=== PATIENT | female | born 1955 | race Caucasian/White ===

== ENCOUNTER 2017-02-07 07:45 | Observation (INO) | payer BC ==
[~2017-02-07 07:45] MED LIST: LIDOCAINE MPF 2% - 5 ML (20 MG/1 ML) ONE; LIDOCAINE W/ SODIUM BICARB 0.5 ML SYR ONE; Lactated Ringers 2,000 ML PRIMARY IV ONE; MIDAZOLAM 5 MG/1 ML ONE; ROCURONIUM 10 MG/1 ML - 5 ML VIAL IVP ONE; Sodium Chloride 0.9% 100 ML IV ONE; fentaNYL Inj 250 MCG/5 ML VIAL ONE
[2017-02-07 08:01] LABS: BILIRUBIN,URINE NEGATIVE (NEG); CLARITY,URINE CLEAR (CLEAR); COLOR,URINE YELLOW; GLUCOSE, URINE (UA) NEGATIVE (NEG); NITRATE,URINE NEGATIVE (NEG); OCCULT BLOOD,URINE NEGATIVE (NEG); PH,URINE >=9.0 (5.0-8.5); PROTEIN,URINE 30 mg/dl (NEG); UROBILINOGEN,URINE 0.2 EU/dL (0.2)
[2017-02-07 08:02] LABS: URINE SAMPLE TYPE VOIDED SPECIMEN
[2017-02-07 08:10] LABS: SQUAMOUS EPITHELIAL CELL,UR MODERATE; URINE CRYSTALS MANY
[2017-02-07] MEDS ORDERED: BUPIVACAINE 0.25% W/ EPI - 10 ML VIAL ONE (09:18)
[2017-02-07] MEDS ORDERED: ONDANSETRON 4 MG/2 ML VIAL ONE (09:20)
[2017-02-07] MEDS ORDERED: DEXAMETHASONE SOD PHOSPHATE 4 MG/1 ML VIAL ONE (09:20)
[2017-02-07] MEDS ORDERED: FAMOTIDINE 20 MG/2 ML VIAL IVP ONE (09:20)
[2017-02-07] MEDS ORDERED: SCOPOLAMINE HYDROBROMIDE 1.5 MG - 1 EACH PATCH TRANSDERM ONE (09:33)
[2017-02-07] MEDS ORDERED: SUFENTANIL 50 MCG/1 ML ONE (10:13)
[2017-02-07] MEDS ORDERED: KETAMINE 100 MG/1 ML - 5 ML ONE (10:13)
[2017-02-07] MEDS ORDERED: HYDRALAZINE 20 MG/1 ML ONE (10:18)
[2017-02-07] MEDS ORDERED: Lactated Ringers 1,000 ML PRIMARY IV ONE (11:00)
[2017-02-07] MEDS ORDERED: METHYLENE BLUE 10 MG/1 ML - 10 ML IM ONE (12:04)
[2017-02-07] MEDS ORDERED: HYDROmorphone 2 MG/1 ML ONE (12:12)
[2017-02-07] MEDS ORDERED: KETOROLAC 30 MG/1 ML VIAL ONE (12:33)
[2017-02-07] MEDS ORDERED: Ondansetron ODT Tab 8 MG TAB PO PRN (12:46)
[2017-02-07] MEDS ORDERED: IBUPROFEN 800 MG TABLET PO PRN (12:46)
--- NOTE | 2017-02-07 12:53 | OB.OP.NOTE ---
Operative Report Surgeon: Karen Assistant Vice President: Tio Melchor MD Anesthesia Type: General Anesthesia Provider: Steve Eng CRNA Surgery Date: 02/07/17 Preoperative Diagnosis: Symptomatic Pelvic Relaxation/Stress Urinary Incontinence. Postoperative Diagnosis: Same Procedure: Robotic Sacral Colpopexy/TVT-O/Cystoscopy Estimated Blood Loss (mL): 60 Fluids: 3200 ml Complications: None Findings at Surgery: Excellent vaginal support. Good placement of TVT mesh without tension. Both ureters ejected urine, and bladder integrity was confirmed at cysto. Indications for the Procedure: SPR/MUNA Description of Procedure: See dictated operative report. Plan: Routine post op care with overnight observation before discharge.
[2017-02-07] MEDS ORDERED: HYDROmorphone 2 MG/1 ML IVP PRN (13:20)
[2017-02-07] MEDS ORDERED: MIDAZOLAM HCL 50 MG/10 ML VIAL IVP PRN (13:20)
[2017-02-07] MEDS ORDERED: NORMAL SALINE 10 ML SYRINGE FLUSH IVP PRN (13:20)
[2017-02-07] MEDS ORDERED: Meperidine Inj 50 MG/ML CARPUJECT IVP PRN (13:20)
[2017-02-07] MEDS ORDERED: fentaNYL Inj 100 MCG/2 ML VIAL IVP PRN (13:20)
[2017-02-07] MEDS: oxyCODONE-ACETAMINOPHEN 5-325 TAB PO PRN ×2 (15:44→19:43)
[2017-02-07] MEDS ORDERED: Promethazine Tab 25 MG TAB PO ONE (16:43)
[2017-02-07] MEDS: KETOROLAC 30 MG/1 ML VIAL IVP PRN (18:43)
[2017-02-07] MEDS: NORMAL SALINE 10 ML SYRINGE FLUSH IVP PRN (18:44)
[2017-02-07] MEDS: DOCUSATE 100 MG CAPSULE PO SCH (21:05)
[2017-02-08] MEDS: oxyCODONE-ACETAMINOPHEN 5-325 TAB PO PRN ×3 (00:19→08:28)
[2017-02-08] MEDS: NORMAL SALINE 10 ML SYRINGE FLUSH IVP PRN ×2 (00:19→06:38)
[2017-02-08] MEDS: KETOROLAC 30 MG/1 ML VIAL IVP PRN ×2 (00:19→06:37)
[2017-02-08 07:27] VITALS: RESP 16; TEMP 97.7
[2017-02-08] MEDS: DOCUSATE 100 MG CAPSULE PO SCH (08:28)
--- NOTE | 2017-02-08 08:59 | DCSUMMARY ---
Hospitalization Summary Admit Date: 02/07/17 Discharge Date: 02/08/17 Primary Diagnosis:: SPR Secondary Diagnosis:: MUNA Hospital Course: The patient underwent an uncomplicated robotic sacral colpopexy and TVT-O. She was observed overnight and discharged to home on POD 1 in good condition. Exam - Vitals Vital Signs: Vital Signs Temperature 97.7 F Temperature Source Oral Pulse Rate [Pulse Oximeter] 68 Pulse Rate [Apical] 70 Pulse Rate 76 Respiratory Rate 16 Blood Pressure [Left Arm] 90/52 Blood Pressure 108/63 Pulse Ox 96 Oxygen Flow Rate 1 Oxygen Flow Rate 3 Oxygen Delivery Method Room Air Height 5 ft 3 in Weight 145 lb 4.8 oz
[2017-02-08] MEDS ORDERED: LEVOFLOXACIN 250 MG TABLET PO SCH (09:00)
== END 2017-02-08 09:43 | disposition home or self-care (01) ==
LOC: SDSC 07:45 → MED/SURG 12:46 → UNDOADMOB 14:00 → MED/SURG 14:00 → UNDODISOB 02-08 09:43
PROVIDERS: ADMIT Obstetrics & Gynecology; ATTEND Obstetrics & Gynecology
DX: N81.89 Other female genital prolapse (principal); N39.3 Stress incontinence (female) (male)
CPT/HCPCS: 57282; 57288; 81001; 94150 ×2; 94761 ×2; 96374; J0694; J1885 ×2; J2704; J3010; Q0162; Q0169; J0360; J1100; J1170; J2001; J2250; J2405; J3490; J7050; J7120